=== PATIENT | female | born 1940 | race Caucasian/White ===

== ENCOUNTER 2016-05-31 20:59 | Emergency (ER) | payer BC ==
[2016-05-31 21:12] VITALS: BP 112/81; PULSE 106; TEMP 98.1; BMI 26.6
--- NOTE | 2016-05-31 21:19 | PDOC ---
Rapid Medical Evaluation Chief Complaint: Pain Time Seen by Provider: 05/31/16 21:14 Medical Evaluation: Allergies Allergy/AdvReac Type Severity Reaction Status Date / Time No Known Allergies Allergy Verified 05/31/16 21:10 Vital Signs Temp Pulse Resp BP Pulse Ox 98.1 F 106 H 20 112/81 96 05/31/16 21:10 05/31/16 21:10 05/31/16 21:10 05/31/16 21:10 05/31/16 21:10 05/31/16 21:16 RME Note: I have performed a brief, in-person evaluation of this patient . This patient presents with CC: periumbilicus pain ; hx diverticullitis; no dysuria Pertinent PE findings are: lower abd pain I have ordered: labs The patient will proceed to ED for further evaluation. JR
[2016-05-31 21:33] LABS: BASOPHIL 0.2 % (0-2.0); EOSINOPHIL 1.1 % (0-4.5); MCHC 33.4 g/dl (32.0-36.0); MEAN CELL VOLUME 95.7 fl (80-96); MEAN PLT VOLUME 8.2 fl (7.5-11.1); NEUTROPHILS 77.3 % (42.8-82.8); PLATELET COUNT 168 K/MM3 (134-434); RDW 13.8 % (11.6-15.6); WHITE BLOOD COUNT 5.1 K/mm3 (4.0-10.0)
[2016-05-31 21:56] LABS: ALBUMIN 3.5 g/dl (3.4-5.0); ALK PHOS 99 U/L (45-117); AMYLASE 37 U/L (25-115); ANION GAP 10 (8-16); BILIRUBIN,TOTAL 0.7 mg/dL (0.2-1.0); CALCIUM 8.8 mg/dL (8.5-10.1); CO2 25 mmol/L (21-32); CREATININE 0.6 mg/dL (0.55-1.02); GLUCOSE,RANDOM 112 mg/dL (74-106); SGOT/AST 19 U/L (15-37); SGPT/ALT 21 U/L (12-78); TOT PROT 7.2 g/dl (6.4-8.2)
[2016-05-31 22:49] LABS: URINE APPEARANCE SLCLOUDY; URINE BILIRUBIN NEGATIVE (NEGATIVE); URINE COLOR YELLOW; URINE GLUCOSE (UA) NEGATIVE (NEGATIVE); URINE KETONE NEGATIVE (NEGATIVE); URINE NITRITE POSITIVE (NEGATIVE); URINE PROTEIN NEGATIVE (NEGATIVE); URINE UROBILINOGEN NEGATIVE E.U./dl (0.2-1.0)
[2016-05-31 22:51] LABS: URINE BLOOD 1+ (NEGATIVE); URINE LEUK ESTERASE 3+ (NEGATIVE)
[2016-05-31 22:53] LABS: URINE BACTERIA MODERATE /hpf (NONE SEEN); URINE HYALINE CAST 2 /lpf; URINE MUCUS MANY; URINE RBC 6 /hpf (0-3); URINE WBC 146 /hpf (3-5)
[2016-05-31] MEDS ORDERED: PHENAZOPYRIDINE HCL 100 MG TABLET (FP) PO ONE (22:55)
--- NOTE | 2016-05-31 22:56 | PDOC ---
History of Present Illness - General Chief Complaint: Pain Stated Complaint: ABD PAIN/NAUSEA Time Seen by Provider: 05/31/16 21:14 - History of Present Illness Initial Comments: 05/31/16 22:56 CHIEF COMPLAINT: lower abd pain HISTORY OF PRESENT ILLNESS: 75 yo F with hx of HLD, GERD, diverticulitis presents to ED with discomfort to lower abdomen and UTI. Patient states she has been having urinary discomfort for the last 3 weeks but was unable get in to see her PCP; today he was able to write her a prescription for Bactrim over the phone because his first available appointment isn't until three days from now. She has only taken one dose of the medicine today so far. Patient states she has been having some nausea but denies any vomiting, fever, or diarrhea. PAST MEDICAL HISTORY: Denies past medical history FAMILY HISTORY: Denies SOCIAL HISTORY: Denies tobacco, alcohol, illicit drug use. SURGICAL HISTORY: Denies ALLERGIES: No known drug allergies REVIEW OF SYSTEMS General/Constitutional: Denies fever or chills. Denies weakness, weight change. HEENT: Denies change in vision. Denies ear pain or discharge. Denies sore throat. Cardiovascular: Denies chest pain or shortness of breath. Respiratory: Denies cough, wheezing, or hemoptysis. Gastrointestinal: Denies nausea, vomiting, diarrhea or constipation. Denies rectal bleeding. Genitourinary: Denies dysuria, frequency, or change in urination. Musculoskeletal: Denies joint or muscle swelling or pain. Denies neck or back pain. Skin and breasts: Denies rash or easy bruising. PHYSICAL EXAM General Appearance: Well-appearing, appropriately dressed. No apparent distress , no intoxication. HEENT: EOMI, PERRLA, normal ENT inspection, pharynx normal. No photophobia, scleral icterus. Respiratory/Chest: Lungs CTAB. Cardiovascular: RRR. S1, S2. Gastrointestinal/Abdominal: Normal bowel sounds. Abdomen soft, non-distended. No tenderness or rebound tenderness. No organomegaly, pulsatile mass, guarding , hernia, hepatomegaly, splenomegaly. Lymphatic: No adenopathy, tenderness. Musculoskeletal/Extremities: L CVA tenderness. Normal inspection. FROM of all extremities, normal capillary refill. No tenderness to extremities, pedal edema , swelling, erythema or deformity. Integumentary: Appropriate color, dry, warm. No cyanosis, erythema, jaundice or rash Neurologic: wrapping machine operator II-XII intact. Fully oriented, alert. Appropriate mood/affect. Motor strength 5/5. No appreciable EOM palsy, facial droop or sensory deficit. 05/31/16 23:21 Past History - Past Medical History Allergies/Adverse Reactions: Allergies Allergy/AdvReac Type Severity Reaction Status Date / Time No Known Allergies Allergy Verified 05/31/16 21:10 Home Medications: Ambulatory Orders Simvastatin [Zocor -] 40 mg PO HS 02/27/13 Pantoprazole Sodium [Protonix] 40 mg PO DAILY 05/31/16 GI Disorders: Yes (STOMACH ULCER, DIVERTICULITIS) Hypercholesterolemia: Yes - Psycho/Social/Smoking Cessation Hx Anxiety: No Suicidal Ideation: No Smoking History: Never smoked Hx Alcohol Use: Yes (social) Substance Use Type: None *Physical Exam - Vital Signs Last Vital Signs Temp Pulse Resp BP Pulse Ox 98.1 F 106 H 20 112/81 96 05/31/16 21:10 05/31/16 21:10 05/31/16 21:10 05/31/16 21:10 05/31/16 21:10 ED Treatment Course - LABORATORY CBC & Chemistry Diagram: 05/31/16 21:20 05/31/16 21:20 - ADDITIONAL ORDERS Additional order review: Laboratory Results 05/31/16 05/31/16 22:35 21:20 Sodium 140 Potassium 4.2 Chloride 105 Carbon Dioxide 25 Anion Gap 10 BUN 24 H Creatinine 0.6 Creat Clearance w eGFR > 60 Random Glucose 112 H D Calcium 8.8 Total Bilirubin 0.7 D AST 19 ALT 21 Alkaline Phosphatase 99 Total Protein 7.2 Albumin 3.5 Total Amylase 37 Lipase 97 Urine Color Yellow Urine Appearance Slcloudy Urine pH 5.0 D Ur Specific [place] 1.025 Urine Protein Negative Urine Glucose (UA) Negative Urine Ketones Negative Urine Blood 1+ H Urine Nitrite Positive Urine Bilirubin Negative Urine Urobilinogen Negative Ur Leukocyte Esterase 3+ H 05/31/16 21:20 RBC 4.30 MCV 95.7 MCHC 33.4 RDW 13.8 MPV 8.2 Neutrophils % 77.3 D Lymphocytes % 12.3 D Monocytes % 9.1 Eosinophils % 1.1 Basophils % 0.2 Medical Decision Making - Medical Decision Making 05/31/16 23:24 75 yo F with hx of HLD, GERD, diverticulitis presents to ED with UTI symptoms x 3 weeks and lower abdominal pain today. Patient was prescribed Bactrim today and has taken one dose. Labs ordered in RME. UA: +UTI - WBC 176, + nitrites. Labs otherwise unremarkable. -Azo 200 mg Discussed with patient that she should continue taking antibiotics that her doctor prescribed and to follow up with him at the next appointment. Advised patient of signs and symptoms for return to ER; patient verbalized understanding and agrees to plan. *DC/Admit/Observation/Transfer Diagnosis at time of Disposition: Urinary tract infection Qualifiers: Urinary tract infection type: site unspecified Hematuria presence: without hematuria Qualified Code(s): N39.0 - Urinary tract infection, site not specified - Discharge Dispostion Disposition: HOME Condition at time of disposition: Stable Admit: No - Referrals Referrals: Babak Pereira [Primary Care Provider] - - Patient Instructions Printed Discharge Instructions: DI for Urinary Tract Infection (UTI) Additional Instructions: Please continue taking your medication as prescribed by Dr. Pereira. As discussed , if you begin to experience fever, vomiting diarrhea, intractable abdominal pain, or any new or worsening symptoms, please return to the ER immediately.
[2016-05-31] MEDS ORDERED: PHENAZOPYRIDINE HCL 100 MG TABLET (FP) ONE (23:07)
--- NOTE | 2016-05-31 23:19 | PDOC ---
*Physical Exam - Vital Signs Last Vital Signs Temp Pulse Resp BP Pulse Ox 98.1 F 106 H 20 112/81 96 05/31/16 21:10 05/31/16 21:10 05/31/16 21:10 05/31/16 21:10 05/31/16 21:10 ED Treatment Course - LABORATORY CBC & Chemistry Diagram: 05/31/16 21:20 05/31/16 21:20 - ADDITIONAL ORDERS Additional order review: Laboratory Results 05/31/16 05/31/16 22:35 21:20 Sodium 140 Potassium 4.2 Chloride 105 Carbon Dioxide 25 Anion Gap 10 BUN 24 H Creatinine 0.6 Creat Clearance w eGFR > 60 Random Glucose 112 H D Calcium 8.8 Total Bilirubin 0.7 D AST 19 ALT 21 Alkaline Phosphatase 99 Total Protein 7.2 Albumin 3.5 Total Amylase 37 Lipase 97 Urine Color Yellow Urine Appearance Slcloudy Urine pH 5.0 D Ur Specific [place] 1.025 Urine Protein Negative Urine Glucose (UA) Negative Urine Ketones Negative Urine Blood 1+ H Urine Nitrite Positive Urine Bilirubin Negative Urine Urobilinogen Negative Ur Leukocyte Esterase 3+ H Urine RBC 6 Urine WBC 146 Ur Epithelial Cells Rare Urine Bacteria Moderate Hyaline Casts 2 Urine Mucus Many 05/31/16 21:20 RBC 4.30 MCV 95.7 MCHC 33.4 RDW 13.8 MPV 8.2 Neutrophils % 77.3 D Lymphocytes % 12.3 D Monocytes % 9.1 Eosinophils % 1.1 Basophils % 0.2 - Medications Given in the ED: ED Medications Discontinued Medications Generic Name Dose Route Start Last Admin Trade Name Freq PRN Reason Stop Dose Admin Phenazopyridine HCl 200 mg 05/31/16 22:55 05/31/16 23:09 Pyridium - PO 05/31/16 22:56 200 mg ONCE ONE Administration Medical Decision Making - Medical Decision Making 05/31/16 23:19 agree with care from [facility] *DC/Admit/Observation/Transfer Diagnosis at time of Disposition: UTI (urinary tract infection) - Discharge Dispostion Disposition: HOME Condition at time of disposition: Stable - Referrals Referrals: Babak Pereira [Primary Care Provider] - - Patient Instructions Printed Discharge Instructions: DI for Urinary Tract Infection (UTI) Additional Instructions: Please continue taking your medication as prescribed by Dr. Pereira. As discussed , if you begin to experience fever, vomiting diarrhea, intractable abdominal pain, or any new or worsening symptoms, please return to the ER immediately.
== END 2016-05-31 23:37 | disposition home or self-care (01) ==
LOC: JER 20:59
DX: N39.0 Urinary tract infection, site not specified (principal); K21.9 Gastro-esophageal reflux disease without esophagitis; E78.00 Pure hypercholesterolemia, unspecified; K57.00 Diverticulitis of small intestine with perforation and abscess without bleeding
CPT/HCPCS: 36415; 80053; 81003; 81015; 82150; 83690; 85025; 87086; 87186; 99281-25